=== PATIENT | female | born 1965 | race African-American/Black ===

== ENCOUNTER 2016-10-19 23:48 | Emergency (ER) | payer SELFPAY ==
[2016-10-20] MEDS ORDERED: traMADol HCl 50 MG TAB ONE (00:33)
[2016-10-20] MEDS ORDERED: AMOXicillin 250 MG CAP ONE (00:34)
== END 2016-10-20 01:27 | disposition home or self-care (01) ==
LOC: NAV ERS 23:48
DX: K08.89 Other specified disorders of teeth and supporting structures (principal); I10 Essential (primary) hypertension; Z72.0 Tobacco use
CPT/HCPCS: 99283

== ENCOUNTER 2017-10-27 10:38 | Emergency (ER) | payer SELFPAY ==
[2017-10-27] MEDS ORDERED: Metoclopramide HCl 10 MG/2 ML VIAL ONE (11:19)
[2017-10-27] MEDS ORDERED: diphenhydrAMINE 50 MG/ML VIAL ONE (11:19)
[2017-10-27] MEDS ORDERED: Nitroglycerin 0.4 MG TAB (25 Tab Bottle) ONE (11:25)
[2017-10-27 11:40] LABS: #Eosinphils 0.2 thou/uL (0.0-0.7); #Lymphocytes 1.2 thou/uL (1.20-3.40); #Monocytes 0.3 thou/uL (0.11-0.59); #Neutrophils 3.1 thou/uL (1.40-6.50); %Basophils 0.7 % (0.0-1.0); %Eosinophils 3.8 % (0.0-10.0); %Lymphocytes 25.2 % (21.0-51.0); %Monocytes 6.7 % (0.0-10.0); %Neutrophils 63.6 % (42.0-75.0); Anisocytosis SLIGHT = 6-15 cells (100X) (0-5/hpf); Hemoglobin 11.2 g/dL (12.0-16.0); MDiff Complete? YES; Mean Corpuscular HGB CONC 28.9 g/dL (32.0-36.0); Mean Corpuscular Hemoglobin 22.3 pg (27.0-31.0); Mean Corpuscular Volume 77.4 fl (81.0-99.0); Mean Platelet Volume 7.6 fL (7.4-10.4); Microcytosis SLIGHT = 6-15 cells (100X) (0-5/hpf); PLT Morphology Comment Appears Adequate; Platelet Count 218 thou/uL (130-400); RBC Distribution Width 14.6 % (11.5-14.5); Red Blood Cell (RBC) Count 5.01 mill/uL (4.20-5.40); White Blood Cell (WBC) Count 4.9 thou/uL (4.8-10.8)
[2017-10-27 11:41] LABS: CKMB 3.6 ng/mL (0-6.6); Troponin I 0.082 ng/mL (< 0.028)
[2017-10-27 11:46] LABS: ALT (SGPT) 24 U/L (8-55); AST (SGOT) 24 U/L (5-34); Albumin 4.3 g/dL (3.5-5.0); Alkaline Phosphatase 66 U/L (40-150); Anion Gap 15 mmol/L (10-20); BUN (Urea Nitrogen) 33 mg/dL (9.8-20.1); Bilirubin, Total 0.5 mg/dL (0.2-1.2); Calc. Creatinine Clearance 0 mL/min (70-130); Calcium 9.9 mg/dL (7.8-10.44); Carbon Dioxide 25 mmol/L (22-29); Chloride 104 mmol/L (98-107); Estimated GFR-MDRD 30; Globulin 3.5 g/dL (2.4-3.5); Glucose 99 mg/dL (70-105); Potassium 3.3 mmol/L (3.5-5.1); Protein, Total 7.8 g/dL (6.0-8.3); Sodium 141 mmol/L (136-145)
[2017-10-27] MEDS ORDERED: Morphine 4 MG/ML Carpuject ONE (11:47)
--- NOTE | 2017-10-27 11:48 | RAD ---
PORTABLE CHEST ONE VIEW: Date: 10-27-17 Time: 11:20 a.m. History: Chest pain, hypertension. FINDINGS/IMPRESSION: The heart size is borderline. No focal areas of consolidation, pneumothoraces, sagrario pleural edema or pleural effusions are seen. POS: [facility]
[2017-10-27] MEDS ORDERED: niCARdipine 20MG In NaCl 20 MG/200 ML BAG ONE (13:12)
--- NOTE | 2017-10-27 13:36 | CT ---
CT HEAD WITHOUT CONTRAST: Date: 10-27-17 Comparison: None available. History: Left arm pain and hypertension. Technique: Serial axial CT imaging is obtained at 5 mm intervals from the vertex through the skull ba se without contrast. FINDINGS: The visualized paranasal sinuses and mastoid air cells are well aerated. No displaced calvarial fract ure is seen. There is atherosclerotic calcification of the cavernous carotid arteries and the distal vertebral art eries. There is no intracranial hemorrhage, midline shift, or mass effect. There is periventricular, deep, and subcortical white matter hypodensity, nonspecific. Small vessel d isease is suspected. This could be better assessed via follow up MRI if clinically warranted. IMPRESSION: 1. Findings suggesting white matter hypodensity. No intracranial hemorrhage, midline shift, or mass e ffect. Potential white matter disease could be best assessed via follow up MRI. 2. Results called to Dr. Maldonado 12:38 p.m. 10-27-17. POS: [facility]
== END 2017-10-27 13:36 | disposition short-term general hospital (02) ==
LOC: NAV ERS 10:38
DX: I20.9 Angina pectoris, unspecified (principal); I10 Essential (primary) hypertension; F17.200 Nicotine dependence, unspecified, uncomplicated
CPT/HCPCS: 70450; 71045; 80053; 82553; 83880; 84484; 85025; 85379; 93005; 96365; 96375; J1170; J1200; J2270; J2765

== ENCOUNTER 2018-01-09 13:41 | Emergency (ER) | payer SELFPAY ==
[2018-01-09] MEDS ORDERED: traMADol HCl 50 MG TAB ONE (14:22)
== END 2018-01-09 14:27 | disposition home or self-care (01) ==
LOC: NAV ERS 13:41
DX: K02.9 Dental caries, unspecified (principal); I25.2 Old myocardial infarction; E78.5 Hyperlipidemia, unspecified; I10 Essential (primary) hypertension; F17.210 Nicotine dependence, cigarettes, uncomplicated; Z79.899 Other long term (current) drug therapy
CPT/HCPCS: 99282

== ENCOUNTER 2018-03-26 14:41 | Emergency (ER) | payer SELFPAY ==
--- NOTE | 2018-03-26 15:31 | RAD ---
PORTABLE CHEST 1 VIEW: Date: 03/26/18 Time: 1511 hours HISTORY: Chest pain. FINDINGS: Comparison made with exam of 02/08/18. Changes of median sternotomy are again seen. The heart is enlarged. The lungs are well expanded witho ut focal areas of consolidation, pneumothoraces, sagrario pulmonary edema, or pleural effusions. IMPRESSION: No acute process. POS: [facility]
[2018-03-26 15:44] LABS: ALT (SGPT) 18 U/L (8-55); AST (SGOT) 21 U/L (5-34); Albumin 4.3 g/dL (3.5-5.0); Alkaline Phosphatase 72 U/L (40-150); Anion Gap 16 mmol/L (10-20); BUN (Urea Nitrogen) 26 mg/dL (9.8-20.1); Bilirubin, Total 0.3 mg/dL (0.2-1.2); CK (CPK) 99 U/L (29-168); CKMB 0.7 ng/mL (0-6.6); Calc. Creatinine Clearance 0 mL/min (70-130); Calcium 9.8 mg/dL (7.8-10.44); Carbon Dioxide 21 mmol/L (22-29); Chloride 108 mmol/L (98-107); Estimated GFR-MDRD 30; Globulin 3.9 g/dL (2.4-3.5); Glucose 101 mg/dL (70-105); Lipase 111 U/L (8-78); Potassium 4.5 mmol/L (3.5-5.1); Protein, Total 8.2 g/dL (6.0-8.3); Sodium 140 mmol/L (136-145); Troponin I 0.014 ng/mL (< 0.028)
[2018-03-26 15:47] LABS: #Basophils 0.1 thou/uL (0.0-0.2); #Eosinphils 0.2 thou/uL (0.0-0.7); #Lymphocytes 1.8 thou/uL (1.20-3.40); #Monocytes 0.5 thou/uL (0.11-0.59); #Neutrophils 3.2 thou/uL (1.40-6.50); %Basophils 1.4 % (0.0-1.0); %Eosinophils 3.2 % (0.0-10.0); %Lymphocytes 31.3 % (21.0-51.0); %Monocytes 9.1 % (0.0-10.0); Anisocytosis SLIGHT = 6-15 cells (100X) (0-5/hpf); Hemoglobin 8.3 g/dL (12.0-16.0); Hypochromia SLIGHT = 6-15 cells (100X) (0-5/hpf); MDiff Complete? YES; Mean Corpuscular HGB CONC 29.4 g/dL (32.0-36.0); Mean Corpuscular Hemoglobin 23.7 pg (27.0-31.0); Mean Corpuscular Volume 80.6 fL (78.0-98.0); Ovalocytes SLIGHT = 2-5 cells (100X) (0-1/hpf); PLT Morphology Comment Appears Adequate; Platelet Count 258 thou/uL (130-400); Polychromasia SLIGHT = 2-3 cells (100X) (0-2/hpf); RBC Distribution Width 15.6 % (11.5-14.5); Red Blood Cell (RBC) Count 3.48 mill/uL (4.20-5.40); White Blood Cell (WBC) Count 5.8 thou/uL (4.8-10.8)
[2018-03-26] MEDS ORDERED: Nitroglycerin 0.4 MG TAB (25 Tab Bottle) ONE (16:21)
== END 2018-03-26 17:15 | disposition home or self-care (01) ==
LOC: NAV ERS 14:41
DX: R07.2 Precordial pain (principal); I25.2 Old myocardial infarction; E78.5 Hyperlipidemia, unspecified; I10 Essential (primary) hypertension; F17.210 Nicotine dependence, cigarettes, uncomplicated; Z79.899 Other long term (current) drug therapy; Z79.82 Long term (current) use of aspirin
CPT/HCPCS: 71045; 80053; 82553; 83690; 83880; 84484; 85025; 93005

== ENCOUNTER 2018-11-04 10:17 | Emergency (ER) | payer SELFPAY ==
[2018-11-04] MEDS ORDERED: Aspirin Chewable 81 MG TAB ONE (10:39)
[2018-11-04] MEDS ORDERED: Nitroglycerin 2% Ointment 1 INCH/1 GM Packet ONE (10:39)
[2018-11-04] MEDS ORDERED: Ondansetron ODT 4 MG TAB ONE (10:40)
[2018-11-04] MEDS ORDERED: NIFEdipine XL 30 MG TAB ONE (10:52)
[2018-11-04 11:02] LABS: ALT (SGPT) 13 U/L (8-55); AST (SGOT) 20 U/L (5-34); Albumin 4.2 g/dL (3.5-5.0); Alkaline Phosphatase 67 U/L (40-150); Anion Gap 16 mmol/L (10-20); BUN (Urea Nitrogen) 39 mg/dL (9.8-20.1); Bilirubin, Total 0.5 mg/dL (0.2-1.2); Calc. Creatinine Clearance 0 mL/min (70-130); Calcium 9.7 mg/dL (7.8-10.44); Carbon Dioxide 24 mmol/L (22-29); Chloride 104 mmol/L (98-107); Estimated GFR-MDRD 25; Globulin 3.6 g/dL (2.4-3.5); Glucose 101 mg/dL (70-105); Potassium 3.5 mmol/L (3.5-5.1); Protein, Total 7.8 g/dL (6.0-8.3); Sodium 140 mmol/L (136-145)
[2018-11-04 11:19] LABS: CKMB 2.3 ng/mL (0-6.6)
[2018-11-04 11:21] LABS: #Eosinphils 0.1 thou/uL (0.0-0.7); #Lymphocytes 1.6 thou/uL (1.20-3.40); #Monocytes 0.3 thou/uL (0.11-0.59); #Neutrophils 2.8 thou/uL (1.40-6.50); %Basophils 0.6 % (0.0-1.0); %Eosinophils 2.9 % (0.0-10.0); %Lymphocytes 32.7 % (21.0-51.0); %Monocytes 6.4 % (0.0-10.0); %Neutrophils 57.4 % (42.0-75.0); Anisocytosis SLIGHT = 6-15 cells (100X) (0-5/hpf); Hemoglobin 9.8 g/dL (12.0-16.0); MDiff Complete? YES; Mean Corpuscular HGB CONC 29.7 g/dL (32.0-36.0); Mean Corpuscular Hemoglobin 22.6 pg (27.0-31.0); Mean Platelet Volume 7.4 fL (7.4-10.4); Microcytosis SLIGHT = 6-15 cells (100X) (0-5/hpf); Platelet Count 222 thou/uL (130-400); Platelet Morphology Comment Appears Adequate; RBC Distribution Width 15.2 % (11.5-14.5); Red Blood Cell (RBC) Count 4.33 mill/uL (4.20-5.40); White Blood Cell (WBC) Count 4.9 thou/uL (4.8-10.8)
[2018-11-04 11:21] LABS: Bilirubin Negative (Negative); Blood, Urine Trace (Negative); Clarity Slightly Cloudy (Clear); Glucose, Urine (Dipstick) Negative (Negative); Leukocyte Moderate (Negative); Nitrite Negative (Negative); Protein, Urine (Dipstick) > or equal to 300 mg/dL (Neg-Trace); Specific Gravity, Urine 1.015 (1.005-1.030); Urobilinogen 0.2 mg/dL (0.2-1.0); pH, Urine 5.5 (5.0-9.0)
[2018-11-04 11:38] LABS: RBC/HPF 0-3 HPF (0-3)
[2018-11-04 11:39] LABS: Bacteria/HPF 1+ HPF (None Seen); Other Microscopic Description NO; Trichomonas/HPF 1+ HPF (None Seen)
[2018-11-04] MEDS ORDERED: Azithromycin 250 MG TAB ONE (12:51)
[2018-11-04] MEDS ORDERED: Lidocaine 1% (PF) 30 ML VIAL ONE (12:52)
[2018-11-04] MEDS ORDERED: cefTRIAXone\\ROCEPHIN 250 MG VIAL ONE (12:52)
--- NOTE | 2018-11-04 12:53 | RAD ---
RADIOGRAPH CHEST 1 VIEW: DATE: 11/04/2018 HISTORY: 53-year-old female with dyspnea and chest pain FINDINGS: There is mild cardiomegaly. There is no evidence of airspace density, pulmonary edema, or pneumothora x. The lateral costophrenic angles are not effaced. 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 IMPRESSION: 1) No acute pulmonary findings. 2) mild cardiomegaly without congestive heart failure. 3) evidence for coronary atherosclerotic disease.
[2018-11-04 13:27] LABS: Troponin I 0.033 ng/mL (< 0.028)
== END 2018-11-04 13:46 | disposition home or self-care (01) ==
LOC: NAV ERS 10:17
DX: I12.9 Hypertensive chronic kidney disease with stage 1 through stage 4 chronic kidney disease, or unspecified chronic kidney disease (principal); N18.9 Chronic kidney disease, unspecified; A59.9 Trichomoniasis, unspecified; I25.2 Old myocardial infarction; E78.5 Hyperlipidemia, unspecified; Z87.891 Personal history of nicotine dependence; Z79.899 Other long term (current) drug therapy; Z79.82 Long term (current) use of aspirin
CPT/HCPCS: 71045; 80053; 81003; 81015; 82553; 84484; 85025; 85379; 93005; 94760; 96372; J0696; J2001; Q0162

== ENCOUNTER 2018-11-27 18:10 | Emergency (ER) | payer SELFPAY ==
[2018-11-27] MEDS ORDERED: cloNIDine 0.2 MG TAB ONE (18:35)
[2018-11-27] MEDS ORDERED: traMADol HCl 50 MG TAB ONE (18:52)
--- NOTE | 2018-11-27 19:00 | RAD ---
4 views right knee: 11/27/2018 COMPARISON: None HISTORY: Knee pain FINDINGS: No acute fracture or evidence of dislocation. Mild medial compartment narrowing. There is e nthesophyte formation at the insertion of the quadriceps tendon and origin of the patellar tendon. IMPRESSION: No acute fracture or dislocation.
[2018-11-27 19:23] LABS: #Eosinphils 0.1 thou/uL (0.0-0.7); #Lymphocytes 1.6 thou/uL (1.20-3.40); #Monocytes 0.3 thou/uL (0.11-0.59); #Neutrophils 2.8 thou/uL (1.40-6.50); %Basophils 0.6 % (0.0-1.0); %Eosinophils 2.9 % (0.0-10.0); %Lymphocytes 32.7 % (21.0-51.0); %Monocytes 6.4 % (0.0-10.0); %Neutrophils 53.2 % (42.0-75.0); Mean Corpuscular HGB CONC 30.4 g/dL (32.0-36.0); Mean Corpuscular Hemoglobin 23.1 pg (27.0-31.0); Mean Corpuscular Volume 75.9 fL (78.0-98.0); Mean Platelet Volume 8.1 fL (7.4-10.4); Platelet Count 221 thou/uL (130-400); RBC Distribution Width 15.2 % (11.5-14.5); Red Blood Cell (RBC) Count 4.31 mill/uL (4.20-5.40); White Blood Cell (WBC) Count 5.7 thou/uL (4.8-10.8)
== END 2018-11-27 19:45 | disposition home or self-care (01) ==
LOC: NAV ERS 18:10
DX: M10.061 Idiopathic gout, right knee (principal); I10 Essential (primary) hypertension; D50.9 Iron deficiency anemia, unspecified; I25.2 Old myocardial infarction; E78.5 Hyperlipidemia, unspecified; Z87.891 Personal history of nicotine dependence; Z79.82 Long term (current) use of aspirin; Z79.899 Other long term (current) drug therapy
CPT/HCPCS: 84550; 85025

== ENCOUNTER 2019-11-19 14:14 | Emergency (ER) | payer MEDICARE, SELFPAY ==
[2019-11-19] MEDS ORDERED: hydrALAZINE 20 MG/ML VIAL ONE (15:05)
[2019-11-19 15:17] LABS: ALT (SGPT) 9 U/L (8-55); AST (SGOT) 16 U/L (5-34); Albumin 4.1 g/dL (3.5-5.0); Alkaline Phosphatase 64 U/L (40-110); Anion Gap 15 mmol/L (10-20); BUN (Urea Nitrogen) 29 mg/dL (9.8-20.1); Bilirubin, Total 0.3 mg/dL (0.2-1.2); Calc. Creatinine Clearance 0 mL/min (70-130); Calcium 9.2 mg/dL (7.8-10.44); Carbon Dioxide 22 mmol/L (22-29); Chloride 110 mmol/L (98-107); Estimated GFR-MDRD 21; Globulin 3.2 g/dL (2.4-3.5); Glucose 84 mg/dL (70-105); Lipase 44 U/L (8-78); Potassium 3.7 mmol/L (3.5-5.1); Protein, Total 7.3 g/dL (6.0-8.3); Sodium 143 mmol/L (136-145)
[2019-11-19 15:31] LABS: #Eosinphils 0.2 thou/uL (0.0-0.7); #Lymphocytes 1.2 thou/uL (1.20-3.40); #Monocytes 0.2 thou/uL (0.11-0.59); #Neutrophils 1.9 thou/uL (1.40-6.50); %Basophils 0.5 % (0.0-1.0); %Eosinophils 5.1 % (0.0-10.0); %Lymphocytes 34.9 % (21.0-51.0); %Monocytes 6.6 % (0.0-10.0); %Neutrophils 52.9 % (42.0-75.0); Hemoglobin 11.1 g/dL (12.0-16.0); Mean Corpuscular Hemoglobin 22.6 pg (27.0-31.0); Mean Corpuscular Volume 80.5 fL (78.0-98.0); Mean Platelet Volume 8.5 fL (7.4-10.4); Platelet Count 182 thou/uL (130-400); RBC Distribution Width 15.4 % (11.5-14.5); Red Blood Cell (RBC) Count 4.93 mill/uL (4.20-5.40); White Blood Cell (WBC) Count 3.5 thou/uL (4.8-10.8)
[2019-11-19 15:46] LABS: Hypochromia SLIGHT = 6-15 cells (100X) (0-5/hpf); MDiff Complete? YES; Platelet Morphology Comment Appears Adequate
== END 2019-11-19 15:40 | disposition left against medical advice (07) ==
LOC: NAV ERS 14:14
DX: E86.0 Dehydration (principal); I10 Essential (primary) hypertension; I25.2 Old myocardial infarction; E78.5 Hyperlipidemia, unspecified; Z87.891 Personal history of nicotine dependence; Z79.899 Other long term (current) drug therapy; Z79.82 Long term (current) use of aspirin
CPT/HCPCS: 80053; 83690; 84484; 85025; 93005; 94760; 96374; J0360

== ENCOUNTER → 2023-02-13 | Day surgery (SDC) | payer MEDICAID ==
[~2023-02-13] MED LIST: Rabies Vaccine Human 2.5 UNITS VIAL ONE
== END ==
LOC: NAV ER/OP 17:12
PROVIDERS: ATTEND Emergency Medicine
DX: Z23 Encounter for immunization (principal)
CPT/HCPCS: 90675

== ENCOUNTER 2023-02-20 17:17 | Emergency (ER) | payer MEDICAID | END 2023-02-20 17:51 | disposition home or self-care (01) | LOC: NAV ERS 17:17 | DX: S81.811D Laceration without foreign body, right lower leg, subsequent encounter (principal); Z23 Encounter for immunization; E78.5 Hyperlipidemia, unspecified; I10 Essential (primary) hypertension; Z87.891 Personal history of nicotine dependence; Z79.899 Other long term (current) drug therapy; Z79.82 Long term (current) use of aspirin; X58.XXXD Exposure to other specified factors, subsequent encounter | CPT/HCPCS: 90471 ==

== ENCOUNTER → 2023-02-20 | Day surgery (SDC) | payer MEDICARE, MEDICAID | LOC: NAV ER/OP 16:57 | PROVIDERS: ATTEND Emergency Medicine | DX: Z23 Encounter for immunization (principal); S81.811D Laceration without foreign body, right lower leg, subsequent encounter; E78.5 Hyperlipidemia, unspecified; I10 Essential (primary) hypertension; Z87.891 Personal history of nicotine dependence; Z79.899 Other long term (current) drug therapy; Z79.82 Long term (current) use of aspirin; X58.XXXD Exposure to other specified factors, subsequent encounter | CPT/HCPCS: 90471; 90675 ==

== ENCOUNTER 2023-06-23 06:04 | Emergency (ER) | payer MEDICARE, MEDICAID ==
[2023-06-23 06:42] LABS: #Lymphocytes 1.5 thou/uL (1.20-3.40); #Monocytes 0.4 thou/uL (0.11-0.59); #Neutrophils 3.3 thou/uL (1.40-6.50); %Basophils 0.7 % (0.0-1.0); %Lymphocytes 28.7 % (21.0-51.0); %Neutrophils 63.5 % (42.0-75.0); Hematocrit 24.7 % (36.0-47.0); Hemoglobin 7.5 g/dL (12.0-16.0); Mean Corpuscular HGB CONC 30.2 g/dL (32.0-36.0); Mean Corpuscular Hemoglobin 23.4 pg (27.0-31.0); Mean Corpuscular Volume 77.4 fl (78.0-98.0); Mean Platelet Volume 7.9 fL (7.4-10.4); Platelet Count 205 10x3/uL (130-400); RBC Distribution Width 15.9 % (11.5-14.5); Red Blood Cell (RBC) Count 3.19 mill/uL (4.20-5.40); White Blood Cell (WBC) Count 5.2 10x3/uL (4.8-10.8)
[2023-06-23 06:44] LABS: ALT (SGPT) 42 U/L (8-55); AST (SGOT) 51 U/L (5-34); Alkaline Phosphatase 95 U/L (40-110); Anion Gap 19 mmol/L (10-20); BUN (Urea Nitrogen) 74 mg/dL (9.8-20.1); Bilirubin, Total 0.4 mg/dL (0.2-1.2); Calc. Creatinine Clearance 0 mL/min (70-130); Calcium 7.3 mg/dL (7.8-10.44); Carbon Dioxide 13 mmol/L (22-29); Chloride 112 mmol/L (98-107); Estimated GFR 7; Globulin 3.9 g/dL (2.4-3.5); Glucose 121 mg/dL (70-105); Potassium 3.9 mmol/L (3.5-5.1); Protein, Total 7.9 g/dL (6.0-8.3); Sodium 140 mmol/L (136-145)
[2023-06-23] MEDS ORDERED: Nitroglycerin 0.4 MG TAB 1 EACH ONE (07:11)
[2023-06-23] MEDS ORDERED: Sodium Chloride 0.9% 1,000 ML ONE (07:11)
[2023-06-23] MEDS ORDERED: Aspirin Chewable 81 MG TAB ONE (07:11)
[2023-06-23 07:13] LABS: Troponin I 0.202 ng/mL (< 0.028)
[2023-06-23] MEDS ORDERED: Labetalol HCl 100 MG/20 ML VIAL ONE (08:18)
[2023-06-23 08:53] LABS: Amphetamine Not Detected (NotDetected); Barbiturates Screen Not Detected (NotDetected); Benzodiazepine Screen Not Detected (NotDetected); Cocaine Metabolite Screen Not Detected (NotDetected); Methadone Not Detected (NotDetected); Methamphetamine Not Detected (NotDetected); Opiate Screen Not Detected (NotDetected); Oxycodone Screen Not Detected (NotDetected); Phencyclidine (PCP) Not Detected (NotDetected); THC/Cannabinoid Screen Detected (NotDetected); Tricyclic Screen Not Detected (NotDetected)
[2023-06-23 08:59] LABS: Bilirubin Negative (Negative); Blood, Urine Small (Negative); Clarity Clear (Clear); Glucose, Urine (Dipstick) 100 mg/dL (Negative); Ketone, Urine Negative (Negative); Leukocyte Negative (Negative); Nitrite Negative (Negative); Protein, Urine (Dipstick) > or equal to 300 mg/dL (Neg-Trace); Urobilinogen 0.2 mg/dL (Less than 2); pH, Urine 6.5 (5.0-9.0)
[2023-06-23 09:30] LABS: Bacteria/HPF Rare-Few HPF (None Seen); CAUTI Indications for Culture Alt mental st,lethar; RBC/HPF 0-3 HPF (0-3); Squamous Epithelial 0-3 HPF (0-3); Urine Culture Reflex No No; WBC/HPF None Seen HPF (0-3)
== END 2023-06-23 10:16 | disposition short-term general hospital (02) ==
LOC: NAV ERS 06:04
DX: I16.1 Hypertensive emergency (principal); N17.9 Acute kidney failure, unspecified; I10 Essential (primary) hypertension; Z87.891 Personal history of nicotine dependence
CPT/HCPCS: 71045; 80053; 80306; 81001; 83880; 84443; 84484; 85025; 85379; 93005; 96361; 96374; J7050

== ENCOUNTER 2023-07-26 11:30 | Emergency (ER) | payer MEDICARE, MEDICAID ==
[2023-07-26 12:14] LABS: #Lymphocytes 0.7 thou/uL (1.20-3.40); #Monocytes 0.3 thou/uL (0.11-0.59); #Neutrophils 3.7 thou/uL (1.40-6.50); %Eosinophils 0.1 % (0.0-10.0); %Lymphocytes 14.8 % (21.0-51.0); %Monocytes 6.5 % (0.0-10.0); %Neutrophils 77.7 % (42.0-75.0); Hematocrit 24.3 % (36.0-47.0); Mean Corpuscular Hemoglobin 23.2 pg (27.0-31.0); Mean Corpuscular Volume 80.2 fl (78.0-98.0); Mean Platelet Volume 7.8 fL (7.4-10.4); Platelet Count 224 10x3/uL (130-400); RBC Distribution Width 17.1 % (11.5-14.5); Red Blood Cell (RBC) Count 3.03 mill/uL (4.20-5.40); White Blood Cell (WBC) Count 4.8 10x3/uL (4.8-10.8)
[2023-07-26 12:32] LABS: ALT (SGPT) 38 U/L (8-55); AST (SGOT) 43 U/L (5-34); Alkaline Phosphatase 107 U/L (40-110); Anion Gap 20 mmol/L (10-20); BUN (Urea Nitrogen) 53 mg/dL (9.8-20.1); Bilirubin, Total 0.3 mg/dL (0.2-1.2); Calc. Creatinine Clearance 0 mL/min (70-130); Calcium 7.6 mg/dL (7.8-10.44); Carbon Dioxide 15 mmol/L (22-29); Chloride 112 mmol/L (98-107); Estimated GFR 7; Globulin 3.2 g/dL (2.4-3.5); Glucose 107 mg/dL (70-105); Potassium 4.2 mmol/L (3.5-5.1); Protein, Total 7.2 g/dL (6.0-8.3); Sodium 143 mmol/L (136-145)
[2023-07-26 12:33] LABS: Troponin I 0.116 ng/mL (< 0.028)
[2023-07-26] MEDS ORDERED: dilTIAZem 125 MG/25 ML SDV ONE (12:44)
[2023-07-26] MEDS ORDERED: Sodium Chloride 0.9% 100 ML ONE (12:44)
[2023-07-26] MEDS ORDERED: niCARdipine 20MG In NaCl 20 MG/200 ML BAG ONE (12:52)
== END 2023-07-26 14:57 | disposition short-term general hospital (02) ==
LOC: NAV ERS 11:30
DX: N19 Unspecified kidney failure (principal); I10 Essential (primary) hypertension; E78.00 Pure hypercholesterolemia, unspecified; F17.210 Nicotine dependence, cigarettes, uncomplicated; Z79.899 Other long term (current) drug therapy
CPT/HCPCS: 71045; 80053; 83880; 84484; 85025; 93005; 96365; 96366